=== PATIENT | male | born 1970 ===

== ENCOUNTER 2024-10-31 06:08 | Day surgery (SDC) | payer BC, SELFPAY ==
[2024-10-17 13:11] VITALS: BMI 26.0
--- NOTE | 2024-10-20 16:51 | PTCARENOTE ---
Abn ECG, Dr. Colbert notified, no additional interventions requested.
[2024-10-31] VITALS (7 sets, daily range): BP systolic 109–139; BP diastolic 44–90; BMI 26.0
[2024-10-31] MEDS: NORMOSOL-R/PLASMALYTE-A 1000 IV (06:31)
[2024-10-31] MEDS: TYLENOL 1000 MG PO (06:31)
--- NOTE | 2024-10-31 06:37 | HP.FOC2 ---
Focused History & Physical
Chief Complaint
HPI:
Chief Complaint: Bilateral inguinal hernias
HPI / Indication for Planned Procedure: Patient is a 53-year-old male recently seen in outpatient surgical evaluation secondary to a few year history of right inguinal swelling. It has slowly increased in size over the years and is now easily
visible and prominent upon standing. He was also recently diagnosed with a probable left inguinal hernia which was confirmed on our follow-up examination. He presents today for scheduled operative correction
Relevant Past Medical History: Other (GERD)
Relevant Social History: Negative
Relevant Family History: Negative
Relevant Past Surgical History: Positive for (Right lower extremity fracture and cracked sternum)
Review of Systems
Review of Pertinent Systems: All Systems Negative
Medication
See Medication form for detailed medications: Yes
Medication List (including Herbals & OTC):
famotidine 20 mg tablet 20 mg PO DAILY 10/24/24
ibuprofen 200 mg tablet (Advil) 200 mg PO Q6H PRN pain 10/24/24
Medications Reviewed: Yes
Allergies and Reactions
Patient has Allergies: No
Noted Allergies and Reactions:
Allergy/AdvReac Type Severity Reaction Status Date / Time
No Known Allergies Allergy Unverified 10/31/24 06:16
Pertinent Physical Exam
All Other Systems: Negative
Head/Neck: Normal
Lungs: Normal
Heart: Normal
Abdomen: Other (Bilateral inguinal hernias right larger than left)
Extremities: Normal
Neurological: Normal
Diagnosis / Assessment
53-year-old male presenting for scheduled operative correction bilateral inguinal hernias
Plan / Procedure
Robotic assisted laparoscopic repair bilateral inguinal hernias with mesh
Anesthesia/Sedation to be done by Anesthesia Provider: Yes
--- NOTE | 2024-10-31 06:39 | W.SUR.PREOP ---
Pre-Operative Surgical Note
-
I have examined this patient prior to the performance of the scheduled procedure.
The patient's condition is unchanged from the time of the current History and
Physical and the patient is able to undergo the scheduled procedure.
--- NOTE | 2024-10-31 09:08 | W.IMMPOSTOP ---
Addendum entered and electronically signed by Chip Prasad MD 10/31/24 16:07:
# [id number]
Original Note:
Surgical Immed Post Op Note
-
Primary Surgeon: Chip Prasad MD
Assisting Surgeon: FABIOLA Andrade
Pre-op Diagnosis: Bilateral inguinal hernias
Post-op Diagnosis: Bilateral inguinal hernias
Procedure Performed: Robotic assisted laparoscopic JERO repair bilateral inguinal hernias with mesh; 3D max large mid weight x 2
Anesthesia Type: GETA +0.25% Marcaine
Specimen / Cultures: None
Estimated Blood Loss: 8 mL
Complications: None immediate
Operative Findings: Right direct inguinal hernia -plication of pseudosac with 2-0 PDS STRATAFIX also secured to Kimo's. 3D max large mid weight mesh repair secured to Kimo's with 2-0 Vicryl
Left direct as well as indirect inguinal hernia. Plication of pseudosac with 2-0 PDS STRATAFIX. 3D max large mid weight mesh repair secured to Kmio's with 2-0 Vicryl
Patient's updated postoperatively in waiting area
[2024-10-31] MEDS: ROXICODONE 5 MG PO (10:29)
== END 2024-10-31 10:52 | disposition home or self-care (01) ==
LOC: SDS 06:08
PROVIDERS: ATTENDING PHYSICIAN Surgery; FAMILY PHYSICIAN Internal Medicine
DX: K40.20 Bilateral inguinal hernia, without obstruction or gangrene, not specified as recurrent (principal)
CPT/HCPCS: 49650; 36415; 93005; C1781